=== PATIENT | male | born 2000 | race Hispanic/Latino ===

== ENCOUNTER 2020-05-30 00:14 | Emergency (ER) | payer MEDICAID ==
[2020-05-30] MEDS ORDERED: FAMOTIDINE/PF 20 MG/2 ML VIAL IV ONE (00:28)
[2020-05-30 00:43] LABS: BILIRUBIN,URINE Negative (NEGATIVE); COLOR,URINE Yellow (YELLOW); GLUCOSE, URINE (UA) Negative (NEGATIVE); KETONES,URINE Negative (NEGATIVE); LEUKOCYTE ESTERASE ,URINE Negative (NEGATIVE); NITRATE,URINE Negative (NEGATIVE); OCCULT BLOOD,URINE Negative (NEGATIVE); PH,URINE 8.5 (5.0-8.0); PROTEIN,URINE Negative (NEGATIVE); UROBILINOGEN,URINE 0.2 mg/dL (0.2-1.0)
[2020-05-30 00:44] LABS: APPEARANCE,URINE CLEAR (CLEAR)
[2020-05-30 00:45] LABS: BASOPHILS % (AUTO) 0.6 % (0.0-5.0); EOSINOPHILS % (AUTO) 2.3 % (0.0-8.0); HEMATOCRIT 42.9 % (42-54); LYMPHOCYTES % (AUTO) 34.3 % (21.0-51.0); MEAN CORPUSCULAR HEMOGLOBIN 30.1 pg (27.0-33.0); MEAN CORPUSCULAR HGB CONC 33.8 g/dL (32.0-36.0); MEAN CORPUSCULAR VOLUME 89.2 fL (80-100); MONOCYTES % (AUTO) 7.6 % (3.0-13.0); NEUTROPHILS % (AUTO) 54.9 % (40.0-77.0); PLATELET COUNT (AUTO) 238 K/uL (130-400); RED BLOOD CELL COUNT(AUTO) 4.81 MIL/uL (4.50-6.20); RED CELL DISTRIBUTION WIDTH 12.6 % (11.0-15.5); WHITE BLOOD COUNT (AUTO) 7.8 K/uL (4.8-10.8)
[2020-05-30 00:59] LABS: CARBON DIOXIDE 30 mmol/L (21-32); CHLORIDE 100 mmol/L (101-111); CREATININE 0.9 mg/dL (0.5-1.5); GLUCOSE,RANDOM 86 mg/dL (70-105); SODIUM SERUM 138 mmol/L (136-145); UREA NITROGEN, BLOOD 12 mg/dL (7-18)
[2020-05-30 01:03] LABS: ALANINE AMINOTRANSFERASE 134 U/L (12-78); ALBUMIN 4.4 g/dL (3.5-5.0); AMYLASE 93 U/L (25-115); ASPARTATE AMINOTRANSFERASE 340 U/L (10-37); BILIRUBIN,TOTAL 0.4 mg/dL (0.2-1.0); LIPASE 92 U/L (114-286)
== END 2020-05-30 03:24 | disposition home or self-care (01) ==
LOC: EDH 00:14
DX: R10.13 Epigastric pain (principal); B96.81 Helicobacter pylori [H. pylori] as the cause of diseases classified elsewhere; R94.5 Abnormal results of liver function studies; F41.9 Anxiety disorder, unspecified; Z72.0 Tobacco use
CPT/HCPCS: 36415; 80053; 81003; 82150; 83690; 85025; 86677; 93005; 96374; 99284; J3490

== ENCOUNTER 2020-07-12 05:53 | Emergency (ER) | payer MEDICAID ==
[2020-07-12] MEDS ORDERED: SODIUM CHLORIDE 0.9% 1000ML 1,000 ML IV ONE (05:54)
[2020-07-12] MEDS ORDERED: ONDANSETRON HCL 4 MG/2 ML VIAL ONE (06:23)
[2020-07-12] MEDS ORDERED: METOCLOPRAMIDE 10 MG/2 ML VIAL ONE (06:23)
[2020-07-12] MEDS ORDERED: HYOSCYAMINE SULFATE 0.125 MG TAB.SUBL SL ONE (06:23)
== END 2020-07-12 07:07 | disposition home or self-care (01) ==
LOC: EDH 05:53
DX: E86.0 Dehydration (principal); R19.7 Diarrhea, unspecified
CPT/HCPCS: 96361; 96374; 96375; 99284; J2405; J2765; J7030